=== PATIENT | male | born 1955 | race Caucasian/White ===

== ENCOUNTER 2022-09-11 10:54 | Outpatient (CLI) | payer MEDICARE, SELFPAY ==
[2022-09-11 22:42] LABS: Albumin* 4.5 g/dL (3.3-5.0)
[2022-09-11 22:43] LABS: Chloride* 103 mmol/L (96-114); Potassium* 5.3 mmol/L (3.6-5.1); Sodium* 139 mmol/L (135-149)
[2022-09-11 22:45] LABS: Bilirubin Total* 0.6 mg/dL (0.1-1.5); Carbon Dioxide* 29 mmol/L (20-32); Cholesterol* 164 mg/dL (90-199); Creatinine* 0.9 mg/dL (0.5-1.5); Estimated Glomerular Filt Rate 94 ml/min
[2022-09-11 22:46] LABS: Alanine Aminotransferase* 30 U/L (4-50); Aspartate Amino Transferase* 25 U/L (12-35); Blood Urea Nitrogen* 17 mg/dL (7-30); Calcium* 9.3 mg/dL (8.4-10.6); HDL Cholesterol* 35 mg/dL (>=40); LDL Cholesterol Calculated 102 mg/dL (<100); Total Protein* 7.1 g/dL (6.0-8.3); Triglycerides* 134 mg/dL (40-149)
[2022-09-12 00:30] LABS: PSA Screen* 1.22 ng/mL (0.10-4.00)
[2022-09-12 04:54] LABS: Alkaline Phosphatase* 64 U/L (40-150); Glucose* 105 mg/dL (60-115)
== END 2022-09-11 10:55 | disposition home or self-care (01) ==
PROVIDERS: PCP Family Medicine; Visit Provider Family Medicine
DX: Z00.00 Encounter for general adult medical examination without abnormal findings (principal); E78.5 Hyperlipidemia, unspecified; I10 Essential (primary) hypertension
CPT/HCPCS: 80053; 80061; 84153

== ENCOUNTER 2024-03-11 11:30 | Outpatient (CLI) | payer MEDICARE, SELFPAY | END 2024-03-11 11:31 | disposition home or self-care (01) | LOC: NFLDREF 03-14 01:53 | PROVIDERS: PCP Family Medicine; Referring Provider Family Medicine; Visit Provider Family Medicine | DX: Z00.00 Encounter for general adult medical examination without abnormal findings (principal); I10 Essential (primary) hypertension; E78.5 Hyperlipidemia, unspecified; N52.9 Male erectile dysfunction, unspecified; Z12.5 Encounter for screening for malignant neoplasm of prostate | CPT/HCPCS: 80053; 80061; G0103 ==

== ENCOUNTER 2025-06-05 10:40 | Outpatient (CLI) | payer MEDICARE, SELFPAY | END 2025-06-05 10:41 | disposition home or self-care (01) | LOC: NFLDREF 06-08 18:16 | PROVIDERS: PCP Family Medicine; Referring Provider Family Medicine; Visit Provider Family Medicine | DX: I10 Essential (primary) hypertension (principal); E78.5 Hyperlipidemia, unspecified; Z12.5 Encounter for screening for malignant neoplasm of prostate | CPT/HCPCS: 80053; 80061; 82043; 82570; G0103 ==